=== PATIENT | male | born 1950 | race Caucasian/White ===

== ENCOUNTER → 2017-11-22 | Outpatient (CLI) | payer BC ==
[~2017-11-22] MED LIST: DUO-KAPS1 CAP PO; IBUPROFEN 200 MG PO
== END ==
LOC: COL.RAD 08:36
DX: M25.512 Pain in left shoulder (principal)
CPT/HCPCS: J3301; Q9967

== ENCOUNTER → 2018-06-27 | Outpatient (CLI) | payer BC | LOC: ZCOL.LAB 16:04 | DX: Z01.812 Encounter for preprocedural laboratory examination (principal); Z86.14 Personal history of Methicillin resistant Staphylococcus aureus infection ==

== ENCOUNTER 2018-06-30 10:43 | Inpatient (IN) | payer BC ==
[~2018-06-30] VITALS: Ht 177.8 cm; Wt 103.9 kg
[2018-08-22] VITALS (10 sets, daily range): BP systolic 107–139; BP diastolic 50–79; PULSE 68–80; TEMP 97.7–98.7
[2018-08-22] MEDS ORDERED: LIPITOR 10MG10 MG PO (06:09)
[2018-08-22] MEDS ORDERED: ZANTAC 150MG T150 MG PO (06:09)
[2018-08-22] MEDS ORDERED: CELEBREX 200MG200 MG PO (06:10)
[2018-08-22] MEDS ORDERED: FERROUSAL325 MG PO (06:11)
[2018-08-22] MEDS ORDERED: FOLIC ACID0.4 MG PO (06:11)
--- NOTE | 2018-08-22 14:54 | NUR ---
SW student met with patient to discuss discharge plan. Patient lives near [place] with his (Milag[place]). Patient's PCP is Dr. Barillas and usually uses the [facility] in [place] for prescriptions. Patient does not use any assistive devices except for a CPAP which he obtained from [facility] in [place]. Patient reports independence with ADLs prior to surgery and states that his can help with things post-surgery. Patient does not have a completed DPOA-HC but says he is working on one, as well as living will, with an city attorney in [place]. Patient starts PT at the hospital in [place] on Saturday (08/26). ROGERIO does not anticipate any discharge needs at this time.
--- NOTE | 2018-08-22 17:48 | NUR ---
Pt in hospital following total Left shoulder arthroplasty. Pt sitting in bed with HOB elevated to 45 degrees. Awake and alert x4. Pleasant and cooperative. Pt has finished eating lunch upon awakening from surgery shortly before this student nurse arrived to floor at 1400. Tolerated regular diet well. States " here earlier, but has left already." Shoulder sling on Left shoulder/arm. ice pack in place. Call light within reach. Reported off to primary nurse Anali OROZCO.
--- NOTE | 2018-08-22 19:45 | NUR ---
Pt sitting with HOB elevated in bed. No distress noted. Family at bedside. Pt ate 100% of dinner tray without difficulty. Pt denies pain. Pt reports not being able to feel L shoulder/ arm/hand yet. Pt reports tingling in L hand. Cap refill <3 secs. Able to move fingers. Pulse strong. L shoulder incision covered with Aquacell dressing- clean, dry and intact. Abductor sling in place. Ice pack to L shoulder. Pt weaned off O2. Maintaining spO2 of 95% on room air. IV converted to INT- pt tolerating PO hydration appropriately. Holloway catheter to dependent drainage- output clear, navarro. No needs noted at this time. Will continue to monitor.
--- NOTE | 2018-08-23 00:30 | NUR ---
Pt resting. Pt denies pain or needs at this time. IV Abx given.
[2018-08-23 00:46] VITALS: BP 124/72; PULSE 61; TEMP 98.1
[2018-08-23 04:46] VITALS: BP 132/76; PULSE 58; TEMP 97.7
--- NOTE | 2018-08-23 06:00 | NUR ---
Pt resting this AM. Pt denies pain and states that he still doesn't have feeling in his L shoulder/arm. He is able to feel pressure and tingling in fingers, however. New ICE pack applied to L shoulder. Holloway catheter to dependent drainage with adequate output. No needs noted this AM.
[2018-08-23] MEDS ORDERED: ASPI325T6 PO (06:16)
[2018-08-23] MEDS ORDERED: NORCO 325 MG-7.1 TAB PO (06:16)
[2018-08-23] MEDS ORDERED: ROXICODONE 55 MG/TAB PO (06:17)
[2018-08-23 08:08] VITALS: BP 134/89; PULSE 58; TEMP 98.1
--- NOTE | 2018-08-23 11:13 | NUR ---
Listend, provided spiritual care, and prayed with the patient.
--- NOTE | 2018-08-23 11:54 | NUR ---
Discharge instructions reviewed with patient and spouse, verbalized understanding. Discharged via wheelchair to auto/home with family at 1140.
== END 2018-08-23 11:40 | disposition home or self-care (01) | DRG 483 ==
LOC: JCC 08-22 05:19
PROVIDERS: ADMIT Orthopaedic Surgery
PROC: 0RRK0JZ Replacement of Left Shoulder Joint with Synthetic Substitute, Open Approach (ICD-10-PCS; principal; 2018-08-22 07:30)
DX: M19.012 Primary osteoarthritis, left shoulder (principal); Z87.891 Personal history of nicotine dependence
CPT/HCPCS: A4314; A4619; A9284; C1713; C1776; J0171; J0360; J0690; J1100; J1170; J1885; J2250; J2405; J2704; J3010; J3370; J7030; J7040; J7120

== ENCOUNTER 2022-02-14 07:16 | Outpatient (CLI) | payer MEDICARE ==
[~2022-02-14] VITALS: Ht 175.3 cm; Wt 101.4 kg
[~2022-02-14 07:16] MED LIST changes: +ALDACTONE 25MG25 M1 PO; +ASPI325T6 PO; +CELEBREX 200MG200 MG PO; +FERROUSAL325 MG PO; +FOLIC ACID0.4 MG PO; +LASIX 80MG TABL80 MG PO; +LIPITOR 10MG10 MG PO; +NORCO 325 MG-7.1 TAB PO; +PRIL40 PO; +ROXICODONE 55 MG/TAB PO; +ZANTAC 150MG T150 MG PO
[2022-02-14 07:58] VITALS: BP 110/68; PULSE 70; TEMP 97.2
[2022-02-14 08:35] VITALS: BP 112/74; PULSE 64; TEMP 98.4
--- NOTE | 2022-02-14 08:35 | NUR ---
Patient tolerated procedure well. He is sitting up on the side of the bed. His procedure site is covered with a clean, dry, intact bandaid. He states he has some mild discomfort on his right side. VSS on room air. CXR is ordered and done by radiology. Labs are drawn as ordered. His is with him. They verbalize understanding of the discharge plan.
[2022-02-14 08:50] VITALS: BP 90/67; PULSE 66
[2022-02-14 09:30] VITALS: BP 110/68; PULSE 66
[2022-02-14 09:41] VITALS: BP 112/74; PULSE 64
--- NOTE | 2022-02-14 09:41 | NUR ---
CXR has been read and Dr. Cornejo has placed a discharge order. Patient drinks some water and tolerates well. He has met discharge criteria. Discharge instructions are discussed. He denies any questions and verbalizes understanding. He is escorted to the exit via wheelchair by staff. He is discharged to home to the care of his , who drives him home in a private vehicle at 0941.
[2022-02-15 10:18] LABS: ANA SCREEN with REFLEX Negative (Negative)
[2022-02-15 21:02] LABS: C-ANCA 13 U/mL (0-99)
[2022-02-16 16:06] LABS: ANGIOTENSIN CONVERTING ENZYME 50 U/L (16 - 85)
== END 2022-02-14 09:41 | disposition home or self-care (01) ==
LOC: SDCO 07:16 → COL.LAB 07:16 → SDCO 08:30
PROVIDERS: Internal Medicine Pulmonary Disease
DX: J90 Pleural effusion, not elsewhere classified (principal); Z87.891 Personal history of nicotine dependence
CPT/HCPCS: 19804